=== PATIENT | male | born 1940 | race Two or more races ===

== ENCOUNTER 2018-02-24 04:24 | Inpatient (IN) | payer MEDICARE, MEDICAID ==
[~2018-02-24] VITALS: Ht 165.1 cm; Wt 66.7 kg
[2018-02-24] MEDS ORDERED: FUROSEMIDE 40MG/4ML VIAL IV STA (04:46)
[2018-02-24] MEDS ORDERED: NITROGLYCERIN OINT 1GM/INCH UDPKT TD STA (04:46)
[2018-02-24 05:29] LABS: BASOPHILS % 0.6 % (0.0-2.0); EOSINOPHILS % 0.7 % (0.0-5.0); HEMATOCRIT. 39.2 % (42.0-52.0); HEMOGLOBIN. 14.1 g/dL (14.0-18.0); MEAN CORPUSCULAR HEMOGLOBIN 34.4 pg (28.0-32.0); MEAN CORPUSCULAR VOLUME 95.8 fL (80.0-94.0); MEAN PLATELET VOLUME 7.4 fl (7.4-10.4); MONOCYTES % 7.7 % (2.0-8.0); PLATELET 77 x1000/uL (130-400); RED BLOOD CELL COUNT 4.09 mill/uL (4.7-6.1); RED CELL DISTRIBUTION WIDTH 19.5 % (11.6-14.6)
[2018-02-24 05:31] LABS: CHLORIDE 89 mEq/L (98-107)
[2018-02-24 05:34] LABS: AMMONIA 40 uMol/L (<32)
[2018-02-24 05:35] LABS: INR 1.2; PROTHROMBIN TIME 12.3 sec (9.4-11.6)
[2018-02-24] MEDS ORDERED: ALBUTEROL (0.083%) 2.5MG/3ML NEB HHN STA (05:42)
[2018-02-24] MEDS ORDERED: IPRATROPIUM BROMIDE (0.02%) 0.5MG/2.5ML NEB HHN STA (05:42)
[2018-02-24] MEDS ORDERED: METHYLPREDNISOLONE SOD SUCC 125 MG/2 ML VIAL IV STA (05:42)
[2018-02-24] MEDS ORDERED: MAGNESIUM 2 G PREMIX 50 ML IV ONE (05:45)
[2018-02-24] MEDS ORDERED: LACTULOSE 20G/30ML UDC PO ONE (05:45)
[2018-02-24] MEDS ORDERED: FAMOTIDINE 20MG/2ML VIAL IV SCH (05:46)
[2018-02-24] MEDS ORDERED: MAGNESIUM/ALUMINUM HYDROXIDE/SIMETHICONE 30ML UDC PO SCH (05:46)
[2018-02-24] MEDS ORDERED: SODIUM CHLORIDE 0.9% 250 ML IV ONE (06:12)
[2018-02-24 08:30] VITALS: BP 100/54
[2018-02-24] MEDS ORDERED: LEVO150T8 MT (09:18)
[2018-02-24] MEDS ORDERED: LACT10SO6 MT (09:18)
[2018-02-24] MEDS ORDERED: CALC-25 MT (09:18)
[2018-02-24] MEDS ORDERED: OMEP40CA34 MT (09:18)
[2018-02-24] MEDS ORDERED: VALS80TA2 MT (09:18)
[2018-02-24] MEDS ORDERED: FURO40TA5 MT (09:18)
[2018-02-24 11:52] LABS: AMYLASE 71 IU/L (25-115); ETHANOL BLOOD < 10 mg/dL
[2018-02-24 12:15] VITALS: BP 100/50
[2018-02-24] MEDS ORDERED: POTASSIUM CHLORIDE 20MEQ TABLET SR PO SCH (12:30)
[2018-02-24] MEDS ORDERED: IPRATROPIUM/ALBUTEROL 0.5-3(2.5)MG/3ML NEB INH PRN (12:30)
[2018-02-24] MEDS ORDERED: GUAIFENESIN 200MG/10ML SUGAR FREE UDC PO PRN (12:30)
[2018-02-24] MEDS ORDERED: ONDANSETRON HCL 4MG/2ML VIAL IV PRN (12:30)
[2018-02-24 13:10] LABS: *AMPHETAMINES SCREEN URINE NEGATIVE (NEGATIVE); *BARBITURATES SCREEN URINE NEGATIVE (NEGATIVE); *BENZODIAZEPINES SCREEN URINE NEGATIVE (NEGATIVE); *COCAINE SCREEN URINE NEGATIVE (NEGATIVE)
[2018-02-24 13:11] LABS: CANNABINOID URINE SCREEN NEGATIVE (NEGATIVE); METHADONE URINE SCREEN NEGATIVE (NEGATIVE); OPIATES URINE SCREEN NEGATIVE (NEGATIVE); PHENCYCLIDINE URINE SCREEN NEGATIVE (NEGATIVE)
[2018-02-24] MEDS: LEVOTHYROXINE SODIUM 150MCG TABLET PO SCH (13:54)
[2018-02-24] MEDS: OMEPRAZOLE 20MG CAPSULE EXTENDED RELEASE PO SCH (13:55)
[2018-02-24 16:30] VITALS: BP 102/58
[2018-02-24] MEDS: LEVOFLOXACIN 500MG PREMIX 100 ML IV SCH (16:44)
[2018-02-24 20:00] VITALS: BP 115/87
[2018-02-24] MEDS: IPRATROPIUM/ALBUTEROL 0.5-3(2.5)MG/3ML NEB INH SCH (20:26)
[2018-02-25] VITALS: BP 97/53
[2018-02-25] MEDS: IPRATROPIUM/ALBUTEROL 0.5-3(2.5)MG/3ML NEB INH SCH ×3 (02:48→12:38)
[2018-02-25 04:00] VITALS: BP 101/47
[2018-02-25] MEDS: OMEPRAZOLE 20MG CAPSULE EXTENDED RELEASE PO SCH (06:34)
[2018-02-25] MEDS: LEVOTHYROXINE SODIUM 150MCG TABLET PO SCH (06:34)
[2018-02-25 07:12] LABS: CHLORIDE 93 mEq/L (98-107)
[2018-02-25 07:19] LABS: AMMONIA 60 uMol/L (<32)
[2018-02-25 07:21] LABS: PHOSPHORUS 3.3 mg/dL (2.5-4.9)
[2018-02-25 08:00] VITALS: BP 100/43
[2018-02-25 08:09] LABS: EOSINOPHILS % 0.1 % (0.0-5.0); HEMATOCRIT. 34.2 % (42.0-52.0); HEMOGLOBIN. 12.2 g/dL (14.0-18.0); LYMPHOCYTES % 14.3 % (20.0-50.0); MEAN CORPUSCULAR HEMOGLOBIN 34.1 pg (28.0-32.0); MEAN CORPUSCULAR VOLUME 95.4 fL (80.0-94.0); MEAN PLATELET VOLUME 7.5 fl (7.4-10.4); MONOCYTES % 6.8 % (2.0-8.0); NEUTROPHILS % 78.8 % (40.0-76.0); PLATELET 74 x1000/uL (130-400); RED BLOOD CELL COUNT 3.58 mill/uL (4.7-6.1); RED CELL DISTRIBUTION WIDTH 20.1 % (11.6-14.6)
[2018-02-25] MEDS: LOSARTAN POTASSIUM 50 MG TABLET PO SCH (08:39)
[2018-02-25] MEDS: FUROSEMIDE 40MG TABLET PO SCH (09:15)
[2018-02-25] MEDS: LACTULOSE 20G/30ML UDC PO SCH (09:17)
[2018-02-25 09:50] LABS: BG BASE EXCESS -0.5 mmol/L (-2.0-2.0); BG CARBOXYHEMOGLOBIN 1.1 % (0.5-1.5); BG DEOXYHEMOGLOBIN 9.7 % (0.0-5.0); BG FRACTION INSPIRED OXYGEN 21; BG HCO3 ACT 21.4 mmol/L (22.0-26.0); BG METHEMOGLOBIN 0.3 % (0.0-1.5); BG OXYGEN SATURATION 90.2 % (92.0-98.5); BG OXYHEMOGLOBIN 88.9 % (94.0-97.0); BG PCO2 27.9 mmHg (35.0-45.0); BG PH 7.502 (7.350-7.450); BG PO2 54.8 mmHg (75.0-100.0); BG SAMPLE SITE RIGHT RADIAL; BG TOTAL HEMOGLOBIN 13.9 g/dL (12.0-18.0); BG VENT MODE ROOM AIR
[2018-02-25 10:20] LABS: HEPATITIS B SURFACE ANTIGEN NEGATIVE
[2018-02-25 10:49] LABS: HEPATITIS B CORE AB IGM NEGATIVE
[2018-02-25 10:50] LABS: HEPATITIS A AB IGM NEGATIVE (NEGATIVE)
[2018-02-25] MEDS: LEVOFLOXACIN 500MG PREMIX 100 ML IV SCH (11:26)
[2018-02-25 12:00] VITALS: BP 91/50
[2018-02-25] MEDS ORDERED: SIMETHICONE 40 MG/0.6 ML 30ML ONE (12:32)
[2018-02-25] MEDS: BUDESONIDE 0.5MG/2ML NEB HHN SCH (12:37)
[2018-02-25] MEDS ORDERED: TRAMADOL 50MG TABLET PO PRN (14:00)
[2018-02-25 19:30] VITALS: BP 90/47
[2018-02-26] VITALS: BP 180/55
[2018-02-26] MEDS: IPRATROPIUM/ALBUTEROL 0.5-3(2.5)MG/3ML NEB INH SCH ×4 (02:45→20:27)
[2018-02-26 04:28] VITALS: BP 103/64
[2018-02-26 08:00] VITALS: BP 105/55
[2018-02-26] MEDS: LOSARTAN POTASSIUM 50 MG TABLET PO SCH (08:35)
[2018-02-26] MEDS: OMEPRAZOLE 20MG CAPSULE EXTENDED RELEASE PO SCH (08:38)
[2018-02-26] MEDS: LACTULOSE 20G/30ML UDC PO SCH (08:38)
[2018-02-26] MEDS: FUROSEMIDE 40MG TABLET PO SCH (08:39)
[2018-02-26] MEDS: LEVOTHYROXINE SODIUM 150MCG TABLET PO SCH (08:39)
[2018-02-26] MEDS: LEVOFLOXACIN 500MG PREMIX 100 ML IV SCH (11:00)
[2018-02-26 12:00] VITALS: BP 101/46
[2018-02-26] MEDS: BUDESONIDE 0.5MG/2ML NEB HHN SCH (13:44)
[2018-02-26] MEDS ORDERED: LACTULOSE 20G/30ML UDC PO SCH (13:45)
[2018-02-26] MEDS: LEVOFLOXACIN 500MG TABLET PO SCH (15:33)
[2018-02-26 16:00] VITALS: BP 113/46
[2018-02-26 18:10] LABS: CHLORIDE 97 mEq/L (98-107)
[2018-02-26 18:14] LABS: BASOPHILS % 0.2 % (0.0-2.0); EOSINOPHILS % 1.4 % (0.0-5.0); HEMATOCRIT. 38.3 % (42.0-52.0); HEMOGLOBIN. 13.4 g/dL (14.0-18.0); LYMPHOCYTES % 17.3 % (20.0-50.0); MEAN CORPUSCULAR HEMOGLOBIN 34.4 pg (28.0-32.0); MEAN CORPUSCULAR VOLUME 97.8 fL (80.0-94.0); MEAN PLATELET VOLUME 7.2 fl (7.4-10.4); MONOCYTES % 8.6 % (2.0-8.0); NEUTROPHILS % 72.5 % (40.0-76.0); PLATELET 79 x1000/uL (130-400); RED BLOOD CELL COUNT 3.91 mill/uL (4.7-6.1); RED CELL DISTRIBUTION WIDTH 20.2 % (11.6-14.6)
[2018-02-26 18:29] LABS: AMMONIA 48 uMol/L (<32)
[2018-02-26 20:00] VITALS: BP 101/55
[2018-02-27] VITALS: BP 100/59
[2018-02-27] MEDS: IPRATROPIUM/ALBUTEROL 0.5-3(2.5)MG/3ML NEB INH SCH ×4 (01:05→21:31)
[2018-02-27] MEDS: BUDESONIDE 0.5MG/2ML NEB HHN SCH ×3 (01:06→21:31)
[2018-02-27 04:00] VITALS: BP 99/59
[2018-02-27] MEDS: OMEPRAZOLE 20MG CAPSULE EXTENDED RELEASE PO SCH (06:25)
[2018-02-27] MEDS: LEVOTHYROXINE SODIUM 150MCG TABLET PO SCH (06:25)
[2018-02-27 07:31] LABS: AMMONIA 49 uMol/L (<32)
[2018-02-27 07:58] VITALS: BP 96/56
[2018-02-27] MEDS: LOSARTAN POTASSIUM 50 MG TABLET PO SCH (08:50)
[2018-02-27] MEDS: LACTULOSE 20G/30ML UDC PO SCH (08:50)
[2018-02-27] MEDS: LEVOFLOXACIN 500MG TABLET PO SCH (08:50)
[2018-02-27] MEDS: FUROSEMIDE 40MG TABLET PO SCH (08:50)
[2018-02-27] MEDS: DOCUSATE SODIUM 100MG CAPSULE PO PRN (08:50)
[2018-02-27] MEDS ORDERED: LEVOFLOXACIN 500MG TABLET PO SCH (09:00)
[2018-02-27 12:04] VITALS: BP 92/53
[2018-02-27 16:00] VITALS: BP 89/53
[2018-02-27 20:00] VITALS: BP 100/59
[2018-02-28] VITALS: BP 105/64
[2018-02-28] MEDS: IPRATROPIUM/ALBUTEROL 0.5-3(2.5)MG/3ML NEB INH SCH ×4 (01:13→21:37)
[2018-02-28 04:00] VITALS: BP 100/56
[2018-02-28] MEDS: LEVOTHYROXINE SODIUM 150MCG TABLET PO SCH (06:11)
[2018-02-28 07:40] LABS: BASOPHILS % 0.7 % (0.0-2.0); EOSINOPHILS % 1.3 % (0.0-5.0); HEMATOCRIT. 35.4 % (42.0-52.0); HEMOGLOBIN. 12.6 g/dL (14.0-18.0); LYMPHOCYTES % 22.6 % (20.0-50.0); MEAN CORPUSCULAR HEMOGLOBIN 34.6 pg (28.0-32.0); MEAN CORPUSCULAR VOLUME 96.9 fL (80.0-94.0); MEAN PLATELET VOLUME 7.1 fl (7.4-10.4); MONOCYTES % 9.3 % (2.0-8.0); NEUTROPHILS % 66.1 % (40.0-76.0); PLATELET 69 x1000/uL (130-400); RED BLOOD CELL COUNT 3.65 mill/uL (4.7-6.1); RED CELL DISTRIBUTION WIDTH 20.6 % (11.6-14.6)
[2018-02-28 08:00] VITALS: BP 106/60
[2018-02-28] MEDS: LOSARTAN POTASSIUM 50 MG TABLET PO SCH (08:09)
[2018-02-28] MEDS: BUDESONIDE 0.5MG/2ML NEB HHN SCH (08:22)
[2018-02-28 09:06] LABS: CHLORIDE 98 mEq/L (98-107)
[2018-02-28] MEDS: DOCUSATE SODIUM 100MG CAPSULE PO PRN (09:41)
[2018-02-28] MEDS: FAMOTIDINE 20MG TABLET PO SCH (09:41)
[2018-02-28] MEDS: FUROSEMIDE 40MG TABLET PO SCH (09:41)
[2018-02-28] MEDS: LACTULOSE 20G/30ML UDC PO SCH (09:41)
[2018-02-28] MEDS: LEVOFLOXACIN 500MG TABLET PO SCH (09:42)
[2018-02-28 12:00] VITALS: BP 101/57
[2018-02-28 16:00] VITALS: BP 117/57
[2018-02-28 20:00] VITALS: BP 96/54
[2018-03-01] VITALS: BP 100/59
[2018-03-01] MEDS: IPRATROPIUM/ALBUTEROL 0.5-3(2.5)MG/3ML NEB INH SCH ×3 (02:40→14:48)
[2018-03-01 04:00] VITALS: BP 94/56
[2018-03-01] MEDS: LEVOTHYROXINE SODIUM 150MCG TABLET PO SCH (06:56)
[2018-03-01 07:08] LABS: BASOPHILS % 0.9 % (0.0-2.0); EOSINOPHILS % 0.9 % (0.0-5.0); HEMOGLOBIN. 12.9 g/dL (14.0-18.0); LYMPHOCYTES % 20.2 % (20.0-50.0); MEAN CORPUSCULAR HEMOGLOBIN 34.6 pg (28.0-32.0); MEAN CORPUSCULAR VOLUME 96.7 fL (80.0-94.0); MEAN PLATELET VOLUME 7.1 fl (7.4-10.4); MONOCYTES % 7.8 % (2.0-8.0); NEUTROPHILS % 70.2 % (40.0-76.0); PLATELET 70 x1000/uL (130-400); RED BLOOD CELL COUNT 3.72 mill/uL (4.7-6.1); RED CELL DISTRIBUTION WIDTH 20.6 % (11.6-14.6)
[2018-03-01 07:19] LABS: CHLORIDE 99 mEq/L (98-107)
[2018-03-01 07:32] LABS: PHOSPHORUS 2.7 mg/dL (2.5-4.9)
[2018-03-01 08:00] VITALS: BP 111/62
[2018-03-01] MEDS: LACTULOSE 20G/30ML UDC PO SCH (08:53)
[2018-03-01] MEDS: LEVOFLOXACIN 500MG TABLET PO SCH (08:54)
[2018-03-01] MEDS: FAMOTIDINE 20MG TABLET PO SCH (08:54)
[2018-03-01] MEDS: FUROSEMIDE 40MG TABLET PO SCH (08:54)
[2018-03-01] MEDS: LOSARTAN POTASSIUM 50 MG TABLET PO SCH (08:54)
[2018-03-01 12:00] VITALS: BP 100/56
[2018-03-01] MEDS ORDERED: POTASSIUM CHLORIDE 10MEQ TABLET SR PO NR (16:00)
[2018-03-01 16:30] VITALS: BP_SYST 102; BP_SYST 106; BP_DIAS 56; BP_DIAS 64
[2018-03-01 16:40] VITALS: BP 106/56
[2018-03-01] MEDS ORDERED: TRAMADOL 50MG TABLET PO NR (16:40)
== END 2018-03-01 18:30 | disposition home or self-care (01) | DRG 441 ==
LOC: ER 04:24 → 6WST 05:46 → EDBEDREQ 05:53 → ENRESERV 07:06 → 6WST 22:46
PROVIDERS: ADMIT Family Medicine Adult Medicine; ATTEND Family Medicine Adult Medicine
DX: K72.90 Hepatic failure, unspecified without coma (principal); J18.9 Pneumonia, unspecified organism; J96.00 Acute respiratory failure, unspecified whether with hypoxia or hypercapnia; E44.0 Moderate protein-calorie malnutrition; I11.0 Hypertensive heart disease with heart failure; D69.59 Other secondary thrombocytopenia; J44.0 Chronic obstructive pulmonary disease with (acute) lower respiratory infection; E87.1 Hypo-osmolality and hyponatremia; I50.9 Heart failure, unspecified; J44.1 Chronic obstructive pulmonary disease with (acute) exacerbation; K70.31 Alcoholic cirrhosis of liver with ascites; E11.9 Type 2 diabetes mellitus without complications; K80.20 Calculus of gallbladder without cholecystitis without obstruction; Z80.0 Family history of malignant neoplasm of digestive organs; Z68.24 Body mass index [BMI] 24.0-24.9, adult
CPT/HCPCS: 36415; 36600; 71045; 71250; 76700; 80048; 80053; 80076; 80305; 82140; 82150; 82375; 82570; 82805; 83036; 83605; 83690; 83735; 83880; 83930; 83935; 84100; 84134; 84300; 84443; 84484; 85025; 85610; 86705; 86709; 86803; 87040; 87340; 92610; 93005; 93970; 94640; 96374; 96375; 97162; 97166; 99285; C1893; G0482; J1940; J1956; J2930; J3475; J3490; J7030; J7050; J7611; J7620; J7626

== ENCOUNTER 2018-03-12 13:56 | Emergency (ER) | payer MEDICARE, MEDICAID ==
[~2018-03-12] VITALS: Ht 167.6 cm; Wt 70.0 kg
[~2018-03-12 13:56] MED LIST: CALC-25 MT; FURO40TA5 MT; LACT10SO6 MT; LEVO150T8 MT; OMEP40CA34 MT; VALS80TA2 MT
[2018-03-12 15:49] VITALS: BP 100/55
== END 2018-03-12 16:13 | disposition home or self-care (01) ==
LOC: ER 14:24
DX: S00.81XA Abrasion of other part of head, initial encounter (principal); I10 Essential (primary) hypertension; E11.9 Type 2 diabetes mellitus without complications; W18.30XA Fall on same level, unspecified, initial encounter; Y93.89 Activity, other specified; Y92.89 Other specified places as the place of occurrence of the external cause; Y99.8 Other external cause status
CPT/HCPCS: 99283